=== PATIENT | male | born 1995 | race Caucasian/White ===

== ENCOUNTER 2019-04-08 17:14 | Emergency (ER) | payer OTHER ==
--- NOTE | 2019-04-08 17:27 | ER Document Report ---
ED Medical Screen (RME) - General Chief Complaint: Laceration Stated Complaint: FINGER LACERATION Time Seen by Provider: 04/08/19 17:25 Primary Care Provider: LINH MATOS MD [Primary Care Provider] - Follow up as needed Mode of Arrival: Ambulatory Information source: Patient Notes: 23-year-old male presented to ED for laceration to the left middle finger. He states he was using a hedge clippers when he cut his hand on the left middle finger. He is alert oriented respirations regular nonlabored speaking in full sentences. 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 He states he does use smokeless tobacco and drinks about weekly. No others cigarettes or drugs used. I have greeted and performed a rapid initial assessment of this patient. A comprehensive ED assessment and evaluation of the patient, analysis of test results and completion of medical decision making process will be conducted by an additional ED providers. TRAVEL OUTSIDE OF THE [place] IN LAST 30 DAYS: No - Related Data Allergies/Adverse Reactions: No Known Allergies Allergy (Verified 04/08/19 17:22) Past Medical History - Social History Chew tobacco use (# tins/day): Yes Frequency of alcohol use: Social Drug Abuse: None Physical Exam - Vital signs Vitals: Temp Pulse Resp BP Pulse Ox 97.7 F 81 18 169/93 H 98 04/08/19 17:21 04/08/19 17:21 04/08/19 17:21 04/08/19 17:21 04/08/19 17:21 Course - Vital Signs Vital signs: Temp Pulse Resp BP Pulse Ox 97.7 F 81 18 169/93 H 98 04/08/19 17:21 04/08/19 17:21 04/08/19 17:21 04/08/19 17:21 04/08/19 17:21 Doctor's Discharge - Discharge Referrals: LINH MATOS MD [Primary Care Provider] - Follow up as needed
--- NOTE | 2019-04-08 17:48 | RADIOLOGY REPORT (SQ) ---
EXAM DESCRIPTION: FINGER LEFT COMPLETED DATE/TIME: 04/08/2019 5:36 pm REASON FOR STUDY: Laceration hedge clippers COMPARISON: None. NUMBER OF VIEWS: Three views. TECHNIQUE: AP, lateral, and oblique images acquired of the left third finger. LIMITATIONS: None. FINDINGS: MINERALIZATION: Normal. BONES: No acute fracture or dislocation. No worrisome bone lesions. SOFT TISSUES: Soft tissue injury. No foreign body. OTHER: No other significant finding. IMPRESSION: SOFT TISSUE INJURY. NO FOREIGN BODY. NO FRACTURE. TECHNICAL DOCUMENTATION: JOB ID: [id number] [employer]- All Rights Reserved Reading location - IP/workstation name: [email or web address]
[2019-04-08] MEDS ORDERED: LIDOCAINE 1% INJ-PF (10 MG/ML) 30 ML SDV INJ ONE (18:33)
[2019-04-08] MEDS ORDERED: HYDROCODONE/ACETAMINOPHEN 5-325 MG TABLET PO ONE (18:34)
--- NOTE | 2019-04-08 18:36 | ER Document Report ---
ED General - General Chief Complaint: Laceration Stated Complaint: FINGER LACERATION Time Seen by Provider: 04/08/19 17:25 Primary Care Provider: LINH MATOS MD [EMERITUS] - Follow up as needed Mode of Arrival: Ambulatory Notes: Patient is a 23-year-old white male with no significant past medical history who presents to the emergency department the chief complaint of laceration of the l eft middle finger that occurred just prior to arrival. Patient reports he was using some brand-new hedge tremors he just taken out of the box from the store when he accidentally cut the edge of his left middle finger. He states bleeding was controlled shortly after. He had previously taken Tylenol and Advil for headache. He states his last tetanus was within the past year. He admits to some pain at the site but denies any deformities, numbness, tingling or weakness. TRAVEL OUTSIDE OF THE [place] IN LAST 30 DAYS: No - Related Data Allergies/Adverse Reactions: No Known Allergies Allergy (Verified 04/08/19 17:22) Past Medical History - General Information source: Patient - Social History Smoking Status: Unknown if Ever Smoked Chew tobacco use (# tins/day): Yes Frequency of alcohol use: Social Drug Abuse: None Family History: None Patient has suicidal ideation: No Patient has homicidal ideation: No Review of Systems - Review of Systems Skin: Other - Laceration -: Yes All other systems reviewed and negative Physical Exam - Vital signs Vitals: Temp Pulse Resp BP Pulse Ox 97.7 F 81 18 169/93 H 98 04/08/19 17:21 04/08/19 17:21 04/08/19 17:21 04/08/19 17:21 04/08/19 17:21 - General General appearance: Appears well, Alert In distress: None - Respiratory Respiratory status: No respiratory distress Chest status: Nontender Breath sounds: Normal Chest palpation: Normal - Cardiovascular Rhythm: Regular Heart sounds: Normal auscultation - Extremities Hand: Other - Full range of motion with and without resistance to the left middle finger distal to the injury. Hemostasis maintained. No foreign body visualized. Good capillary refill distally. V-shaped flap-like laceration to the radial edge of the finger. - Neurological Neuro grossly intact: Yes Cognition: Normal Orientation: AAOx4 Phillip Coma Scale Eye Opening: Spontaneous Phillip Coma Scale Verbal: Oriented Phillip Coma Scale Motor: Obeys Commands Phillip Coma Scale Total: 15 Speech: Normal Motor strength normal: LUE, RUE, LLE, RLE Sensory: Normal - Psychological Associated symptoms: Normal affect, Normal mood - Skin Skin Temperature: Warm Skin Moisture: Dry Skin Color: Normal Course - Re-evaluation Re-evalutation: 04/08/19 19:58 Patient tolerated well. We will give a short course of pain medications and placed on antibiotics given the nature of injury. Counseled the patient regarding the importance of outpatient follow-up and advised to return here in 2 to 3 days for wound recheck/reevaluation. Suture removal in approximately 10 to 12 days. Advised to return here or any ER immediately with any new, persistent or worsening symptoms. He verbalized understood and agreed. - Vital Signs Vital signs: Temp Pulse Resp BP Pulse Ox 97.7 F 81 18 169/93 H 98 04/08/19 17:21 04/08/19 17:21 04/08/19 17:21 04/08/19 17:21 04/08/19 17:21 Procedures - Laceration/Wound Repair Left Finger 3rd digit Time completed: 19:57 Wound length (cm): 3 Wound's Depth, Shape: Superficial, Flap Laceration pre-procedure: Chloraprep applied, Shur-Clens applied, Other - Copiously irrigated with normal saline Anesthetic type: Other - Digital block Volume Anesthetic (mLs): 5 Wound explored: Clean Wound Repaired With: Sutures Suture Size/Type: 4:0, Prolene Number of Sutures: 6 Layer Closure?: No Post-procedure wound care: Sterile dressing applied, Splint applied Post-procedure NV exam normal: Yes Complications: No Discharge - Discharge Clinical Impression: Finger laceration Qualifiers: Encounter type: initial encounter Finger: middle finger Damage to nail status: without damage Foreign body presence: without foreign body Laterality: left Qualified Code(s): S61.213A - Laceration without foreign body of left middle finger without damage to nail, initial encounter Condition: Stable Disposition: HOME, SELF-CARE Instructions: Laceration Care ([facility]) Additional Instructions: Follow-up with your regular doctor in 2 to 3 days for reevaluation. Return here or any ER immediately with any new, persistent or worsening symptoms. Suture removal in approximately 10 to 12 days. Prescriptions: Cephalexin Monohydrate [Keflex 500 mg Capsule] 500 mg PO QID #40 capsule Hydrocodone/Acetaminophen [[place] 5-325 mg Tablet] 1 tab PO Q6 PRN #12 tablet PRN Reason: Referrals: LINH MATOS MD [EMERITUS] - Follow up as needed
[2019-04-08 20:11] VITALS: BP 142/85
== END 2019-04-08 20:16 | disposition home or self-care (01) ==
LOC: ER 17:14
DX: S61.213A Laceration without foreign body of left middle finger without damage to nail, initial encounter (principal); W29.3XXA Contact with powered garden and outdoor hand tools and machinery, initial encounter; Z72.0 Tobacco use
CPT/HCPCS: 99283; 73140; 12002; J3490